=== PATIENT | female | born 1940 | race Caucasian/White ===

== ENCOUNTER → 2016-12-12 | Outpatient (CLI) | payer MEDICARE ==
--- NOTE | 2016-12-13 13:03 | MM ---
Reason for exam: screening (asymptomatic). Last mammogram was performed 1 year ago. History: Patient is postmenopausal. Cyst aspiration of the left breast. Physical Findings: A clinical breast exam by your physician is recommended on an annual basis and results should be correlated with mammographic findings. MG Screening Mammo w CAD Bilateral CC and MLO view(s) were taken. Prior study comparison: December 07, 2015, bilateral MG 3d screening mammo w/cad. There are scattered fibroglandular densities. No significant changes when compared with prior studies. ASSESSMENT: Benign, BI-RAD 2 RECOMMENDATION: Routine screening mammogram of both breasts in 1 year.
== END | disposition home or self-care (01) ==
LOC: RADMAMWWP 08:51
PROVIDERS: ATTEND Internal Medicine
DX: Z12.31 Encounter for screening mammogram for malignant neoplasm of breast (principal)

== ENCOUNTER → 2017-12-20 | Outpatient (CLI) | payer MEDICARE ==
--- NOTE | 2017-12-21 14:09 | MM ---
Reason for exam: screening (asymptomatic). Last mammogram was performed 1 year ago. History: Patient is postmenopausal. Cyst aspiration of the left breast. Physical Findings: A clinical breast exam by your physician is recommended on an annual basis and results should be correlated with mammographic findings. MG Screening Mammo w CAD Bilateral CC and MLO view(s) were taken. Prior study comparison: December 12, 2016, bilateral MG screening mammo w CAD. December 07, 2015, bilateral MG 3d screening mammo w/cad. The breast tissue is heterogeneously dense. This may lower the sensitivity of mammography. Finding: There are stable heterogeneous, grouped/clustered calcifications in the upper outer quadrant, posterior middle position of the right breast. No significant changes in finding since December 12, 2016 and December 07, 2015. ASSESSMENT: Benign, BI-RAD 2 RECOMMENDATION: Routine screening mammogram of both breasts in 1 year.
== END | disposition home or self-care (01) ==
LOC: RADMAMWWP 09:43
PROVIDERS: ATTEND Internal Medicine
DX: Z12.31 Encounter for screening mammogram for malignant neoplasm of breast (principal)
CPT/HCPCS: 77067

== ENCOUNTER → 2018-12-21 | Outpatient (CLI) | payer MEDICARE ==
--- NOTE | 2018-12-25 10:07 | MM ---
Reason for exam: screening (asymptomatic). Last mammogram was performed 1 year ago. History: Patient is postmenopausal. Benign cyst aspiration of the left breast, 1988. Physical Findings: A clinical breast exam by your physician is recommended on an annual basis and results should be correlated with mammographic findings. MG Screening Mammo w CAD Bilateral CC and MLO view(s) were taken. Prior study comparison: December 20, 2017, bilateral MG screening mammo w CAD. December 12, 2016, bilateral MG screening mammo w CAD. The breast tissue is heterogeneously dense. This may lower the sensitivity of mammography. Benign appearing similar bilateral calcifications. No suspicious abnormality. No significant changes when compared with prior studies. ASSESSMENT: Benign, BI-RAD 2 RECOMMENDATION: Routine screening mammogram of both breasts in 1 year.
== END | disposition home or self-care (01) ==
LOC: RADMAMWWP 13:32
PROVIDERS: ATTEND Internal Medicine
DX: Z12.31 Encounter for screening mammogram for malignant neoplasm of breast (principal)
CPT/HCPCS: 77067

== ENCOUNTER → 2019-01-18 | Outpatient (CLI) | payer MEDICARE ==
--- NOTE | 2019-01-18 14:31 | BD ---
EXAMINATION TYPE: Axial Bone Density DATE OF EXAM: 01/18/2019 COMPARISON: NONE CLINICAL HISTORY: Osteoporosis, osteopetrosis Height: 5 FT 2 1/2 IN Weight: 131 FRAX RISK QUESTIONS: History of Fracture in Adulthood: YES Secondary Osteoporosis: RISK FACTORS HISTORY OF: Hip Fracture (Right/Left): LT When: 2002 Surgery to Spine/Hip(right/left)/Wrist (right/left): LT HIP/FEMUR 2002 When: 2002 Active: YES Postmenopausal woman: AGE 50 Lost more than 2 inches in height since high school: YES MEDICATIONS: Additional Medications: GENERIC FOR LIPITOR Additional History: EXAM MEASUREMENTS: Bone mineral densitometry was performed using the [employer] System. Bone mineral density as measured about the Lumbar spine is: ----- L1-L4(G/cm2): 0.795 T Score Values are as follows: ----- L2: -4.5 ----- L3: -2.9 ----- L4: -2.2 ----- L1-L4: -3.2 Bone mineral density has: INCREASED 3.4 % since study of: 2016 Bone mineral density about the R hip (g/cm2): 0.698 T Score values are as follows: -----R Neck: -2.4 -----R Total: -2.8 Bone mineral density has: DECREASED -6.2 % since study of: 2016 IMPRESSION: Osteoporosis (T Score less than -2.5). There is increased fracture risk and therapy is usually indicated based on age. Re-Screen 1-2 years. NOTE: T-SCORE=SD OF THE YOUNG ADULT MEAN.
== END | disposition home or self-care (01) ==
LOC: RADBDWWP 12:57
PROVIDERS: ATTEND Internal Medicine
DX: M81.0 Age-related osteoporosis without current pathological fracture (principal); Q78.2 Osteopetrosis
CPT/HCPCS: 77080

== ENCOUNTER → 2025-01-09 | Outpatient (CLI) | payer MEDICARE ==
--- NOTE | 2025-01-09 13:56 | BD ---
EXAMINATION TYPE: Axial Bone Density DATE OF EXAM: 01/09/2025 CLINICAL HISTORY: 84 years old Female. ICD-10 CODE: Z78.0 ASYMPTOMATIC MENOPAUSAL STATE , Additional History: Height: Weight: FRAX RISK QUESTIONS: History of Fracture in Adulthood: yes 3. Menopause before 45: no, at 50 RISK FACTORS osteoporosis, height loss, HISTORY OF: right foot and ankle last year Hip Fracture (Right/Left): left, 2002, with surgical replacement MEDICATIONS: cholesterol meds, vit d, potassium, Lasix, magnesium, heart meds, bp meds, blood thinners EXAM MEASUREMENTS: Bone mineral densitometry was performed using the [employer] System. Bone mineral density as measured about the Lumbar spine is: ----- L1-L4(G/cm2): 0.847 T Score Values are as follows: ----- L1: -3.9 ----- L2: -4.1 ----- L3: -2.4 ----- L4: -0.8 ----- L1-L4: -2.8 Z Score Values are as follows: ----- L1: -1.7 ----- L2: -2.0 ----- L3: -0.2 ----- L4: 1.4 ----- L1-L4: -0.6 Bone mineral density has: Increased 6.5% since study of: 01.18.2019 Bone mineral density about the R hip (g/cm2): 0.621 T Score values are as follows: -----R Neck: -2.9 -----R Total: -3.1 Z Score values are as follows: -----R Neck: -0.4 -----R Total: -0.7 Bone mineral density has: Decreased -4.8% since study of: 01.18.2019 FRAX%s: The graph provided illustrates a 30.4% chance for a major osteoporotic fx and a 11.7% chance for the hips probability for fx in 10 years time. IMPRESSION: Osteoporosis (T Score less than -2.5). There is increased fracture risk and therapy is usually indicated based on age. Re-Screen 1-2 years. NOTE: T-SCORE=SD OF THE YOUNG ADULT MEAN. [facility], , 01/09/2025 1:54 PM
== END | disposition home or self-care (01) ==
LOC: RADBDWWP 13:10
PROVIDERS: ATTEND Family Medicine
DX: M81.0 Age-related osteoporosis without current pathological fracture (principal); Z78.0 Asymptomatic menopausal state
CPT/HCPCS: 77080